=== PATIENT | male | born 1990 | race Caucasian/White ===

== ENCOUNTER 2021-05-23 15:06 | Emergency (ER) | payer OTHER ==
--- NOTE | 2021-05-23 19:03 | CR ---
INDICATION: Laceration. FINDINGS: Three views of the right hand show no evidence of acute fracture or dislocation. No radiopaque foreign body. No other bony or soft tissue abnormalities identified. Dictated by Aroldo Pelaez MD @ 05/23/2021 7:02:37 PM (Electronically Signed)
[2021-05-23] MEDS ORDERED: Diphtheria,Pertussis(Acell),Tetanus Vaccine 0.5 ML Syringe IM ONE (19:05)
[2021-05-23] MEDS ORDERED: Bupivacaine 0.5% 10 ML SDV ONE (19:59)
--- NOTE | 2021-05-23 20:25 | EDM.PDOC ---
ED HPI GENERAL MEDICAL PROBLEM - General Chief Complaint: Laceration Stated Complaint: PINTCHED FINGER ON RT HAND Time Seen by Provider: 05/23/21 18:16 Source of Information: Reports: Patient History Limitations: Reports: No Limitations - History of Present Illness INITIAL COMMENTS - FREE TEXT/NARRATIVE: HISTORY AND PHYSICAL: History of present illness: She is a 30-year-old male who presents emergency room today with concern of right hand index finger injury that occurred just prior to arrival to the emergency room. Patient states that his finger got pinched between 2 piping while at work. Patient states that he is not up-to-date on tetanus and would like to update this today. Patient denies any other resuscitative symptoms. Patient states he is fully able to move the finger and has full sensation. Patient denies fever, chills, chest pain, shortness of breath, or cough. Denies headache, neck stiff ness, change in vision, syncope, or near syncope. Denies nausea, vomiting, abdominal pain, diarrhea, constipation, or dysuria. Has not noted any blood in urine or stool. Patient has been eating and drinking appropriately. Review of systems: As per history of present illness and below otherwise all systems reviewed and negative. Past medical history: As per history of present illness and as reviewed below otherwise noncontributory. Surgical history: As per history of present illness and as reviewed below otherwise noncontributory. Social history: See social history for further information Family history: As per history of present illness and as reviewed below otherwise noncontributory. Physical exam: General: Patient is alert, oriented, and in no acute distress. Patient sitting comfortably on exam table. Stable and reviewed by me. HEENT: Atraumatic, normocephalic, pupils equal and reactive bilaterally, negative for conjunctival pallor or scleral icterus, mucous membranes moist, TMs normal bilaterally, throat clear, neck supple, nontender, trachea midline. No drooling or trismus noted. No meningeal signs. No hot potato voice noted. Lungs: Clear to auscultation, breath sounds equal bilaterally, chest nontender. Heart: S1S2, regular rate and rhythm without overt murmur Abdomen: Soft, nondistended, nontender. Negative for masses or hepatosplenomegaly. Negative for costovertebral tenderness. Pelvis: Stable nontender. Genitourinary: Deferred. Rectal: Deferred. Skin: Intact, warm, dry. No lesions or rashes noted. Extremities: There is a 5 cm flap-like muscular laceration of the right hand lateral proximal index finger that does not involve the bone or exposed bone. Patient does have full range of motion of the digit without deficit. Intact sensation to light and deep touch of the affected digit. Radial pulses grossly intact of the right upper extremity with capillary refill less than 2 seconds. Patient's hands are covered in dirt/oil. Otherwise, atraumatic, negative for cords or calf pain. Neurovascular unremarkable. Neuro: Awake, alert, oriented. Cranial nerves II through XII unremarkable. Cerebellum unremarkable. Motor and sensory unremarkable throughout. Exam nonfocal. Notes: Signs and symptoms that were prompt return to the ED thoroughly discussed with patient. Discussed importance for follow-up with a primary care provider. Voices understanding and is agreeable to plan of care. Denies any further questi ons or concerns at this time. Diagnostics: Hand x-ray Therapeutics: Tdap, lidocaine, bupivacaine, sutures Prescription: Keflex Impression: Finger laceration, right, second digit Plan: 1. Keep the area clean and dry. Continue to monitor for signs of infection as discussed. Sutures to be removed in 7-10 days. 2. Tylenol and/or ibuprofen as directed and as needed for pain management and discomfort. 3. Please follow-up with your primary care provider as discussed. Return to the ED as needed and as discussed. Definitive disposition and diagnosis as appropriate pending reevaluation and review of above. Right Finger-Index Pain Score (Numeric/FACES): 3 - Related Data Home Meds: Home Meds cephALEXin [Keflex] 500 mg PO BID 7 Days #14 cap 05/23/21 [Rx] Past Medical History - Past Health History Medical/Surgical History: Denies Medical/Surgical History Social & Family History - Tobacco Use Tobacco Use Status *Q: Former Tobacco User Used Tobacco, but Quit: Yes Month/Year Tobacco Last Used: 02/2020 - Recreational Drug Use Recreational Drug Use: No ED ROS GENERAL - Review of Systems Review Of Systems: Comprehensive ROS is negative, except as noted in HPI. ED EXAM, SKIN/RASH Exam: See Below (see dictation) ED SKIN PROCEDURES - Laceration/Wound Repair Right Proximal Digit - 2nd (Index) Appearance: Muscle, Irregular, Moderately Contaminated Distal NVT: Neuro & Vascular Intact, No Tendon Injury Anesthetic Type: Local Local Anesthesia - Lidocaine (Xylocaine): 1% Plain Local Anesthesia - Bupivicaine (Marcaine): 0.5% Plain Local Anesthetic Volume: Other (10cc) Skin Prep: Chlorhexidine (Hibiciens), Saline Saline Irrigation (cc's): 500 Exploration/Debridement/Repair: Wound Explored, In a Bloodless Field, Explored to Base, No Foreign Material Found Closed with: Sutures Lac/Wound length In cm: 5 Suture Size: 4-0 # of Sutures: 19 Suture Type: Silk, Interrupted Drain Placement: No Sterile Dressing Applied: Nurse Tetanus Status Addressed: Yes Complications: No Course - Vital Signs Last Recorded V/S: Last Vital Signs Temp 98.0 F 05/23/21 16:31 Pulse 63 05/23/21 16:31 Resp 18 05/23/21 16:31 BP 118/67 05/23/21 16:31 Pulse Ox 97 05/23/21 16:31 - Orders/Labs/Meds Orders: Active Orders 24 hr Category Date Time Status Vaccines to be Administered [RC] PER UNIT ROUTINE Care 05/23/21 19:05 Active Meds: Medications Discontinued Medications Generic Name Dose Route Start Last Admin Trade Name Zoran PRN Reason Stop Dose Admin Bupivacaine HCl Confirm 05/23/21 19:59 05/23/21 20:34 Bupivacaine 0.5% 10 Ml Sdv Administered 05/23/21 20:00 10 ml Dose Administration 10 ml .ROUTE .STK-MED ONE Bupivacaine HCl 10 ml 05/23/21 20:33 Bupivacaine 0.5% 10 Ml Sdv INJECT 05/23/21 20:34 ONETIME ONE Diphtheria/Tetanus/Acell Pertussis 0.5 ml 05/23/21 19:05 05/23/21 19:11 Diphtheria,Pertussis(Acell),Tetanus Vaccine 0.5 Ml Syringe IM 05/23/21 19:06 0.5 ml .ONCE ONE Administration Lidocaine HCl 10 ml 05/23/21 19:12 05/23/21 19:19 Lidocaine 1% 5 Ml Sdv INJECT 05/23/21 19:13 10 ml ONETIME ONE Administration Departure - Departure Time of Disposition: 20:25 Disposition: Home, Self-Care 01 Clinical Impression: Finger laceration Qualifiers: Encounter type: initial encounter Finger: index finger Damage to nail status: without damage Foreign body presence: without foreign body Laterality: right Qualified Code(s): S61.210A - Laceration without foreign body of right index finger without damage to nail, initial encounter - Discharge Information Prescriptions: cephALEXin [Keflex] 500 mg PO BID 7 Days #14 cap Referrals: PCP,None [Primary Care Provider] - Forms: ED Department Discharge Additional Instructions: The following information is given to patients seen in the emergency department who are being discharged to home. This information is to outline your options for follow-up care. We provide all patients seen in our emergency department with a follow-up referral. The need for follow-up, as well as the timing and circumstances, are variable depending upon the specifics of your emergency department visit. If you don't have a primary care physician on staff, we will provide you with a referral. We always advise you to contact your personal physician following an emergency department visit to inform them of the circumstance of the visit and for follow-up with them and/or the need for any referrals to a consulting specialist. The emergency department will also refer you to a specialist when appropriate. This referral assures that you have the opportunity for follow-up care with a specialist. All of these measure are taken in an effort to provide you with optimal care, which includes your follow-up. Under all circumstances we always encourage you to contact your private physician who remains a resource for coordinating your care. When calling for follow-up care, please make the office aware that this follow-up is from your recent emergency room visit. If for any reason you are refused follow-up, please contact the [facility] at and asked to speak to the emergency department charge nurse. [facility] [address] [place] [id number] [id number] 1. Keep the area clean and dry. Continue to monitor for signs of infection as discussed. Sutures to be removed in 7-10 days. 2. Tylenol and/or ibuprofen as directed and as needed for pain management and discomfort. 3. Please follow-up with your primary care provider as discussed. Return to the ED as needed and as discussed. Sepsis Event Note (ED) - Focused Exam Vital Signs: Vital Signs Temp Pulse Resp BP Pulse Ox 05/23/21 16:31 98.0 F 63 18 118/67 97 - My Orders Last 24 Hours: My Active Orders 05/23/21 19:05 Vaccines to be Administered [RC] PER UNIT ROUTINE - Assessment/Plan Last 24 Hours: My Active Orders 05/23/21 19:05 Vaccines to be Administered [RC] PER UNIT ROUTINE
[2021-05-23] MEDS ORDERED: Bupivacaine 0.5% 10 ML SDV INJECT ONE (20:33)
== END 2021-05-23 20:59 | disposition home or self-care (01) ==
LOC: MW.ED 15:06
DX: S61.210A Laceration without foreign body of right index finger without damage to nail, initial encounter (principal); Z87.891 Personal history of nicotine dependence; Z23 Encounter for immunization; W23.0XXA Caught, crushed, jammed, or pinched between moving objects, initial encounter; Y92.89 Other specified places as the place of occurrence of the external cause; Y99.0 Civilian activity done for income or pay
CPT/HCPCS: 12002; 73130; 90471; 90715; 99283; J3490